=== PATIENT | male | born 1945 | race Caucasian/White ===

== ENCOUNTER → 2016-12-21 | Day surgery (SDC) | payer MEDICARE, OTHER ==
[~2016-12-21] VITALS: Ht 176.5 cm; Wt 92.5 kg
[~2016-12-21] MED LIST: 0.9% Sodium Chloride 1,000 ML IV PRN; ALBU8.5H2 INHALATION; ASPI-973 PO; ATOR20TA PO; FEXO180T PO; GARL200T PO; HYDR12.55 PO; KRIL500C PO; Lactated Ringer's 1,000 ML IV ONE; SIN10 PO; Sodium Chloride LOK Flush 10 mL Syringe IV PRN; UBID100T7 PO; ZES10 PO; fentaNYL-PF 50 mCg/mL 2 mL Inj IVPUSH PRN
[2016-12-21 15:49] VITALS: BP 147/85; PULSE 92; RESP 17; O2SAT 95
--- NOTE | 2016-12-21 16:38 | PCM.ENDEGD ---
EGD Date of Service: Dec 21, 2016 Physician Nazario Ba MD Pre Procedure Diagnosis: Anemia Post Procedure Dx & Findings: Normal upper GI Procedure Esophagogastroduodenoscopy PROCEDURE IN DETAIL: After proper sedation, Olympus video endoscope was inserted into patient's mouth and esophagus was successfully intubated. Scope introduced esophagus. Esophagus showed normal shiny whitish mucosa consistent with squamous cell component. Z line was intact at 45 cm from the incisors. Scope further advanced to the stomach. Stomach showed normal shiny mucosa with normal appearing rugae folds without any ulcer mass erosion. Cardia fundus body antrum pylorus were all visualized. Retroflexion was done. Stomach was easily inflated and deflatable using air. Scope further advanced to the distal duodenum. Duodenum revealed normal villous structures with normal appearing folds without any mass ulcer erosion. 5 biopsies obtained for workup of anemia. Impression Normal upper GI Recommendation Colonoscopy Presedation Assessment Risks and Benefits Informed consent was obtained from the patient after all risks and benefits including but not limited to drug reaction, infection, pain, bleeding, perforation, as well as alternatives were discussed. Patient monitoring Continuous pulse oximetry, cardiac monitoring, blood pressure monitoring, IV access, and oxygen at 2L per nasal cannula. Periprocedural Fentanyl: Fentanyl 125mcg Incrementally Midazolam: Midazolam 7mg Incrementally Complications There were no periprocedural complications identified. Post Procedure Plan Post Procedure Recommendations 1. Restrict activities today. 2. Resume normal activities in the morning. 3. Resume medications. 4. GERD behavioral modification: - Avoid fatty, acidic, spicy, large meals - Do not lie down after meals - Do not eat or drink anything for at least 2 1/2 hours before going to bed at night - Discontinue tobacco and alcohol - Decrease or avoid caffeine - Avoid chocolate and mints - Decrease weight - Avoid aspirin and non steroidal anti-inflammatory agents (NSAID) such as Aleve, Advil, Mobic, Naproxen, Ibuprofen, etc 5. Add proton pump inhibitor. Take 30 minutes before 1st meal of the day. 6. Patient informed of normal post procedure side effects as bloating, drowsiness, blood streaking in the stool 7. If gastric biopsy reveal H.pylori, continue with appropriate treatment 8. If small bowel biopsy reveals celiac, continue with appropriate treatment 9. Please don't hesitate to call me with any questions Nazario Ba MD Dec 21, 2016 16:38
--- NOTE | 2016-12-21 16:41 | PCM.ENDCOL ---
Colonoscopy Date of Service: Dec 21, 2016 Physician Nazario Ba MD Pre Procedure Diagnosis: Anemia Post Procedure Dx & Findings: Polyps hemorrhoids Procedure Colonoscopy PROCEDURE IN DETAIL: Prep adequate Withdrawal time 6 minutes After unremarkable rectal examination the Olympus video colonoscope was inserted patient's anal canal and was advanced to cecum. Landmarks were identified including the ileocecal valve and appendiceal orifice. Scope further advanced to the terminal ileum. Advanced 10 cm. The visualized terminal ileum show normal healthy villous structures without any ulcer mass or erosion. Scope was withdrawn systematically. Visualized colonic mucosa showed healthy shiny mucosa with normal healthy-appearing vasculature. In the ascending, there were 2 polyps. Both were 1 mm in size. These were both removed completely using cold forceps. In the sigmoid colon there was a < 1 mm polyp which was removed completely using cold forceps. In the rectum retroflexion was done which showed hemorrhoids. Anal canal was inspected carefully on the way out and hemorrhoids noted. Impression Normal TI Polyp 3 status post complete removal Hemorrhoids Source of anemia Recommendation Repeat colonoscopy 3 years Presedation Assessment Risks and Benefits Informed consent was obtained from the patient after all risks and benefits including but not limited to drug reaction, infection, pain, bleeding, perforation, as well as alternatives were discussed. Patient monitoring Continuous pulse oximetry, cardiac monitoring, blood pressure monitoring, IV access, and oxygen at 2L per nasal cannula. Complications There were no periprocedural complications identified. Post Procedure Plan Post Procedure Recommendations 1. Restrict activities today. 2. Resume normal activities in the morning. 3. Resume medications. 4. Patient informed of normal post procedure side effects as bloating, drowsiness, blood streaking in the stool. 5. average risk CRCS. If colon polyps come back as: -Hyperplastic- can repeat colonoscopy in 10 years -Tubular adenoma- repeat colonoscopy in 5 years -Tubulovillous/villous adenoma- repeat colonoscopy in 3 years -If any dysplasia- return to clinic as soon as possible 6. Please don't hesitate to call me with any questions. Nazario Ba MD Dec 21, 2016 16:41
[2016-12-21 16:46] VITALS: BP 114/62; PULSE 80; RESP 12; O2SAT 92
[2016-12-21 16:53] VITALS: BP 89/57; PULSE 70; RESP 3; O2SAT 94
[2016-12-21 16:55] VITALS: BP 142/79; PULSE 90; RESP 14; O2SAT 97
--- NOTE | 2016-12-23 15:14 | PATH ---
SURGICAL PATHOLOGY Attending Physician:Nazario Ba M.D. CASE STATUS: Signed Out PATIENT NAME: ARIEL ANGUIANO PID: [id number] : 1945 DATE COLLECTED:12/21/2016 00:00 SPECIMEN: 1: Duodenum, Biopsy 2: Colon, Polyp 3: Colon, Polyp CLINICAL HISTORY: 1). DUODENAL BIOPSY 2). ASCENDING POLYP X2 3). SIGMOID POLYP X1 FINAL DIAGNOSIS: 1. Duodenum, Biopsy: Superficial portions of duodenal mucosa with no diagnostic abnormality. Negative for active inflammation, features of sprue, dysplasia, and malignancy. 2. Ascending Colon, Polyps, Biopsies: Portions of tubular adenoma x2; negative for high-grade dysplasia. 3. Sigmoid Colon, Polyp, Biopsy: Tubular adenoma; negative for high-grade dysplasia. ICD10: K63.5 GROSS DESCRIPTION: The specimen is received in three formalin filled containers labeled with the patient's name. 1). The specimen is labeled "duodenal" and consists of 4 extremely tiny portions of tissue which aggregate to 0.2 x 0.2 x 0.1 CM. The specimen is entirely submitted in cassette 1A. 2). The specimen is labeled "ascending polyp" and consists of 2 portions of tissue which aggregate to 0.2 x 0.2 x 0.2 CM. The specimen is entirely submitted in cassette 2A. 3). The specimen is labeled "sigmoid polyp" and consists of an extremely tiny less than 0.1 CM portion of tissue which is entirely submitted in cassettes 3A. 12/22/2016RI ICD-9 CODES: CPT CODES: 1: 73670 2: 20860 3: 12725 Electronically Signed Out Alis Slater MD [facility] [address], [place] [address] Technical component performed at [facility], [address] [place] [address] Ave[address], [place], [address]
== END | disposition home or self-care (01) ==
LOC: END 00:43
PROVIDERS: ATTEND Internal Medicine
DX: D12.2 Benign neoplasm of ascending colon (principal); D12.5 Benign neoplasm of sigmoid colon; D64.9 Anemia, unspecified; K64.8 Other hemorrhoids; I10 Essential (primary) hypertension; J45.909 Unspecified asthma, uncomplicated; E78.5 Hyperlipidemia, unspecified; N40.0 Benign prostatic hyperplasia without lower urinary tract symptoms; R73.01 Impaired fasting glucose; Z86.73 Personal history of transient ischemic attack (TIA), and cerebral infarction without residual deficits; Z85.46 Personal history of malignant neoplasm of prostate; Z79.82 Long term (current) use of aspirin; Z79.899 Other long term (current) drug therapy
CPT/HCPCS: 43239; 45380; 88305; 99153; G0500; J2250; J3010; J7030